=== PATIENT | male | born 1955 | race Hispanic/Latino ===

== ENCOUNTER 2024-03-21 09:26 | Outpatient (CLI) | payer MEDICARE ==
[2024-03-21] MEDS ORDERED: Iopamidol 370 76% 100 ML VIAL ONE (13:04)
== END 2024-03-21 09:27 | disposition home or self-care (01) ==
LOC: CT 09:26
PROVIDERS: ATTEND Nurse Practitioner Family
DX: R91.1 Solitary pulmonary nodule (principal); N28.89 Other specified disorders of kidney and ureter; J98.4 Other disorders of lung; M94.8X8 Other specified disorders of cartilage, other site
CPT/HCPCS: 71260; 82565; Q9967

== ENCOUNTER 2024-08-30 08:40 | Outpatient (CLI) | payer MEDICARE ==
[2024-08-30] MEDS ORDERED: Iopamidol 370 76% 100 ML VIAL ONE (10:04)
== END 2024-08-30 08:41 | disposition home or self-care (01) ==
LOC: CT 08:40
PROVIDERS: ATTEND Urology
DX: N28.89 Other specified disorders of kidney and ureter (principal); R93.421 Abnormal radiologic findings on diagnostic imaging of right kidney; R94.8 Abnormal results of function studies of other organs and systems
CPT/HCPCS: 74170; 78306; A9503; Q9967

== ENCOUNTER 2024-09-14 09:51 | Outpatient (CLI) | payer MEDICARE | END 2024-09-14 09:52 | disposition home or self-care (01) | LOC: ULT 09:51 | PROVIDERS: ATTEND Urology | DX: N28.89 Other specified disorders of kidney and ureter (principal) | CPT/HCPCS: 76770 ==

== ENCOUNTER 2024-09-29 13:28 | Outpatient (CLI) | payer MEDICARE | END 2024-09-29 13:29 | disposition home or self-care (01) | LOC: RAD 13:28 | PROVIDERS: ATTEND Urology | DX: R94.8 Abnormal results of function studies of other organs and systems (principal); M21.961 Unspecified acquired deformity of right lower leg ==

== ENCOUNTER 2024-10-05 13:23 | Outpatient (CLI) | payer MEDICARE ==
[2024-10-05 14:53] LABS: #Basophils 0.03 10x3/uL (0.0-0.2); %Basophils 0.5 % (0.0-1.0); %Eosinophils 2.1 % (0.0-10.0); %Lymphocytes 20.4 % (21.0-51.0); %Monocytes 7.7 % (0.0-10.0); %Neutrophils 69.3 % (42.0-75.0); Hematocrit 43.6 % (42.0-52.0); Hemoglobin 14.5 g/dL (14.0-18.0); Mean Corpuscular HGB CONC 33.3 g/dL (32.0-36.0); Mean Corpuscular Hemoglobin 30.2 pg (27.0-31.0); Mean Corpuscular Volume 90.8 fL (78.0-98.0); Mean Platelet Volume 10.4 fL (7.4-10.4); Platelet Count 219 10x3/uL (130-400); RBC Distribution Width 13.2 % (11.5-14.5)
[2024-10-05 15:07] LABS: Anion Gap 12 mmol/L (10-20); BUN (Urea Nitrogen) 10 mg/dL (8.4-25.7); Calc. Creatinine Clearance 0 mL/min (70-130); Calcium 9.6 mg/dL (7.8-10.44); Carbon Dioxide 26 mmol/L (23-31); Chloride 107 mmol/L (98-107); Estimated GFR 103; Glucose 91 mg/dL (80-115); Potassium 3.8 mmol/L (3.5-5.1); Sodium 141 mmol/L (136-145)
[2024-10-05 15:12] LABS: PTT 26.5 sec (22.9-36.1); Prothrombin Time 13.4 sec (12.0-14.7)
[2024-10-05 15:20] LABS: Bacteria/HPF None Seen HPF (None Seen); Bilirubin Negative (Negative); Blood, Urine Negative (Negative); Clarity Clear (Clear); Glucose, Urine (Dipstick) Normal (Negative); Ketone, Urine Negative (Negative); Leukocyte Negative Leu/uL (Negative); Nitrite Negative (Negative); Protein, Urine (Dipstick) Negative (Neg-Trace); RBC/HPF 0-3 HPF (0-3); Specific Gravity, Urine 1.006 (1.002-1.036); Squamous Epithelial 0-3 HPF (0-3); Urobilinogen Normal mg/dL (Less than 2); WBC/HPF None Seen HPF (0-3)
== END 2024-10-05 13:24 | disposition home or self-care (01) ==
LOC: LABBT 13:23
PROVIDERS: ATTEND Urology
DX: Z01.818 Encounter for other preprocedural examination (principal); Z12.5 Encounter for screening for malignant neoplasm of prostate; I12.9 Hypertensive chronic kidney disease with stage 1 through stage 4 chronic kidney disease, or unspecified chronic kidney disease; E11.22 Type 2 diabetes mellitus with diabetic chronic kidney disease; N18.1 Chronic kidney disease, stage 1; N28.89 Other specified disorders of kidney and ureter; R35.0 Frequency of micturition; R91.1 Solitary pulmonary nodule; N32.89 Other specified disorders of bladder; D17.79 Benign lipomatous neoplasm of other sites; N40.1 Benign prostatic hyperplasia with lower urinary tract symptoms; R35.1 Nocturia; R81 Glycosuria; R94.8 Abnormal results of function studies of other organs and systems
CPT/HCPCS: 71046; 80048; 81001; 85025; 85610; 85730; 86850; 86900; 86901; 87086; 93005; 93010